=== PATIENT | male | born 1940 | race Hispanic/Latino ===

== ENCOUNTER 2018-03-22 18:29 | Emergency (ER) | payer MEDICARE, OTHER ==
[2018-03-22] MEDS ORDERED: ONDANSETRON HCL MDV 20ML 2 MG/ML VIAL ONE (18:33)
[2018-03-22] MEDS ORDERED: MORPHINE SULFATE 2 MG/ML 1ML SYG ONE (18:33)
[2018-03-22 18:46] LABS: BASOPHILS % (AUTO) 0.3 % (0.0-5.0); EOSINOPHILS % (AUTO) 0.1 % (0.0-8.0); LYMPHOCYTES % (AUTO) 19.8 % (21.0-51.0); MEAN CORPUSCULAR HEMOGLOBIN 30.8 pg (27.0-33.0); MEAN CORPUSCULAR HGB CONC 35.1 g/dL (32.0-36.0); MEAN CORPUSCULAR VOLUME 87.6 fL (79-99); NEUTROPHILS % (AUTO) 70.8 % (40.0-77.0); NUCLEATED RED BLOOD CELLS 0.1 % (0.0-0.19); PLATELET COUNT (AUTO) 115 K/uL (130-400); RED BLOOD CELL COUNT(AUTO) 4.45 MIL/uL (4.50-6.20); RED CELL DISTRIBUTION WIDTH 14.9 % (11.0-15.5); WHITE BLOOD COUNT (AUTO) 6.5 K/uL (4.8-10.8)
[2018-03-22] MEDS ORDERED: TETANUS/DIPHTHERIA TOXOID [ADULT] 0.5 ML VIAL IM ONE (18:49)
[2018-03-22] MEDS ORDERED: CEFAZOLIN SODIUM 1 GM VIAL ONE (18:49)
[2018-03-22] MEDS ORDERED: SODIUM CHLORIDE 0.9% 50 ML IV ONE (18:50)
[2018-03-22 18:55] LABS: CREATININE 1.1 mg/dL (0.5-1.5); POTASSIUM 3.5 mmol/L (3.5-5.1)
[2018-03-22 18:56] LABS: INR 0.98 (0.85-1.15); PARTIAL THROMBOPLASTIN TIME 23.9 SEC (26.3-35.5); PROTHROMBIN TIME 10.3 SEC (9.6-11.6)
[2018-03-22 19:02] LABS: ALBUMIN 4.6 g/dL (3.5-5.0); BILIRUBIN,TOTAL 1.4 mg/dL (0.2-1.0)
[2018-03-22] MEDS ORDERED: ONDANSETRON HCL 4 MG/2 ML VIAL ONE ×2 (19:28→20:42)
[2018-03-22] MEDS ORDERED: ACETAMINOPHEN 325 MG TAB ONE (20:42)
[2018-03-22] MEDS ORDERED: MANNITOL 25% 50ML VIAL ONE ×2 (21:56→22:15)
== END 2018-03-23 00:09 | disposition short-term general hospital (02) ==
LOC: EDH 18:29
DX: S05.61XA Penetrating wound without foreign body of right eyeball, initial encounter (principal); I10 Essential (primary) hypertension; E11.9 Type 2 diabetes mellitus without complications; R79.1 Abnormal coagulation profile; Z86.73 Personal history of transient ischemic attack (TIA), and cerebral infarction without residual deficits; Z98.890 Other specified postprocedural states; W33.01XA Accidental discharge of shotgun, initial encounter; Y93.89 Activity, other specified; Y92.89 Other specified places as the place of occurrence of the external cause; Y99.8 Other external cause status
CPT/HCPCS: 36415; 70481; 70486; 80053; 85025; 85610; 85730; 90471; 90714; 96365; 96374; 96375; 96376 ×2; 99291; J0690; J2150 ×2; J2405 ×2

== ENCOUNTER 2020-10-29 13:38 | Inpatient (IN) | payer MEDICARE, OTHER ==
[~2020-10-29] VITALS: Ht 165.1 cm; Wt 68.0 kg
[2020-10-29 13:57] LABS: APPEARANCE,URINE SL CLOUDY (CLEAR); BILIRUBIN,URINE NEGATIVE (NEGATIVE); COLOR,URINE YELLOW (YELLOW); GLUCOSE, URINE (UA) NEGATIVE (NEGATIVE); KETONES,URINE NEGATIVE (NEGATIVE); LEUKOCYTE ESTERASE ,URINE MODERATE (NEGATIVE); NITRATE,URINE NEGATIVE (NEGATIVE); OCCULT BLOOD,URINE LARGE (NEGATIVE); PH,URINE 5.5 (5.0-8.0); PROTEIN,URINE 30 mg/dL (NEGATIVE); UROBILINOGEN,URINE 0.2 mg/dL (0.2-1.0)
[2020-10-29] MEDS ORDERED: ACETAMINOPHEN 500 MG TABLET ONE ×2 (14:08→23:58)
[2020-10-29] MEDS ORDERED: 0.9%NACL 1000ML 2,000 ML IV ONE (14:08)
[2020-10-29 14:10] LABS: BASOPHILS % (AUTO) 0.2 % (0.0-5.0); EOSINOPHILS % (AUTO) 1.6 % (0.0-8.0); HEMATOCRIT 40.2 % (42-54); LYMPHOCYTES % (AUTO) 8.3 % (21.0-51.0); MEAN CORPUSCULAR HGB CONC 34.6 g/dL (32.0-36.0); MEAN CORPUSCULAR VOLUME 89.5 fL (79-99); MONOCYTES % (AUTO) 9.9 % (3.0-13.0); NEUTROPHILS % (AUTO) 74.4 % (40.0-77.0); PLATELET COUNT (AUTO) 75 K/uL (130-400); RED BLOOD CELL COUNT(AUTO) 4.49 MIL/uL (4.50-6.20); RED CELL DISTRIBUTION WIDTH 13.2 % (11.0-15.5); WHITE BLOOD COUNT (AUTO) 12.5 K/uL (4.8-10.8)
[2020-10-29 14:19] LABS: BACTERIA,URINE Few /HPF (None Seen); SQUAMOUS EPITHELIAL CELL,UR Rare /HPF (0-2); WBC,URINE 26-50 /HPF (0-1)
[2020-10-29 14:28] LABS: CREATININE 1.3 mg/dL (0.5-1.5); POTASSIUM 3.5 mmol/L (3.5-5.1)
[2020-10-29 14:32] LABS: ALBUMIN 4.7 g/dL (3.5-5.0); BILIRUBIN,TOTAL 2.4 mg/dL (0.2-1.0); TOTAL PROTEIN, SERUM 8.7 g/dL (6.0-8.3)
[2020-10-29] MEDS ORDERED: ZOSYN 3.375GM+NS 50ML 50 ML IV ONE ×2 (14:42→23:57)
[2020-10-29] MEDS ORDERED: IOHEXOL-350 75 ML VIAL IV ONE (14:44)
[2020-10-29] MEDS ORDERED: MORPHINE 2 MG SYG IV PRN (18:45)
[2020-10-29] MEDS ORDERED: ONDANSETRON 4MG INJ IV PRN (18:45)
[2020-10-29] MEDS ORDERED: ACETAMINOPHEN 325 MG TAB PO PRN ×2 (18:45)
[2020-10-29] MEDS ORDERED: ACETAMINOPHEN 325 MG TAB ONE (19:46)
[2020-10-29] MEDS ORDERED: FAMOTIDINE 20MG VIAL IV ONE (20:48)
[2020-10-29] MEDS ORDERED: ZOSYN 3.375GM+NS 50ML 50 ML IV SCH (21:00)
[2020-10-30] MEDS ORDERED: ACETAMINOPHEN 325 MG TAB ONE ×2 (04:12→04:58)
[2020-10-30] MEDS ORDERED: 0.9%NACL 1000ML 1,000 ML IV ONE (04:13)
[2020-10-30 04:16] LABS: BASOPHILS % (AUTO) 0.1 % (0.0-5.0); EOSINOPHILS % (AUTO) 1.2 % (0.0-8.0); HEMATOCRIT 39.8 % (42-54); LYMPHOCYTES % (AUTO) 8.5 % (21.0-51.0); MEAN CORPUSCULAR HEMOGLOBIN 30.9 pg (27.0-33.0); MEAN CORPUSCULAR HGB CONC 33.2 g/dL (32.0-36.0); MEAN CORPUSCULAR VOLUME 93.2 fL (79-99); MONOCYTES % (AUTO) 4.8 % (3.0-13.0); NEUTROPHILS % (AUTO) 80.9 % (40.0-77.0); PLATELET COUNT (AUTO) 73 K/uL (130-400); RED BLOOD CELL COUNT(AUTO) 4.27 MIL/uL (4.50-6.20); RED CELL DISTRIBUTION WIDTH 13.5 % (11.0-15.5)
[2020-10-30 04:31] LABS: ALBUMIN 4.1 g/dL (3.5-5.0); BILIRUBIN,TOTAL 2.1 mg/dL (0.2-1.0); CREATININE 1.5 mg/dL (0.5-1.5); POTASSIUM 3.6 mmol/L (3.5-5.1)
[2020-10-30] MEDS ORDERED: ONDANSETRON 4MG INJ ONE (04:31)
[2020-10-30] MEDS: 0.9%NACL 1000ML 1,000 ML IV SCH ×2 (04:45→16:48)
[2020-10-30] MEDS ORDERED: ASPIRIN 325 MG TABLET ONE (04:58)
[2020-10-30] MEDS ORDERED: VANCOMYCIN 1G/250ML KIT 250 ML IV SCH (05:00)
[2020-10-30] MEDS: ASPIRIN 325MG EC TAB PO SCH (05:00)
[2020-10-30] MEDS: MEROPENEM 1 GM VIAL IVP SCH ×3 (05:00→21:32)
[2020-10-30] MEDS ORDERED: VANCOMYCIN PROTOCOL PER PHARMACY IV SCH (05:00)
[2020-10-30] MEDS ORDERED: VANCOMYCIN IV SCH (05:30)
[2020-10-30] MEDS ORDERED: NACL 0.9% IV SCH (05:30)
[2020-10-30] MEDS ORDERED: VANCOMYCIN 1G/250ML KIT 250 ML IV ONE (06:41)
[2020-10-30] MEDS ORDERED: FAMOTIDINE 20MG VIAL IV ONE (08:29)
[2020-10-30] MEDS: FAMOTIDINE 20MG VIAL IV SCH (09:00)
[2020-10-30] MEDS ORDERED: ACETAMINOPHEN 500 MG TABLET ONE (11:21)
[2020-10-30] MEDS ORDERED: MEROPENEM 1 GM VIAL ONE (12:32)
[2020-10-30 16:00] VITALS: BP 111/63
[2020-10-30] MEDS ORDERED: DiphenhydrAMINE HCL 50 MG/ML VIAL IV SCH (17:45)
[2020-10-30] MEDS ORDERED: SOLU-MEDROL 125MG VIAL IVP SCH (17:45)
[2020-10-30] MEDS ORDERED: SOLU-MEDROL 40MG VIAL ONE (17:46)
[2020-10-30] MEDS ORDERED: DiphenhydrAMINE HCL 50 MG/ML VIAL ONE (17:47)
[2020-10-30] MEDS ORDERED: TAMSULOSIN HCL 0.4 MG CAP.ER.24H PO SCH (18:30)
[2020-10-30 19:59] VITALS: BP 107/56
[2020-10-30 23:45] VITALS: BP 110/63
[2020-10-31 03:29] VITALS: BP 110/71
[2020-10-31] MEDS ORDERED: AEC81 PO (04:11)
[2020-10-31] MEDS ORDERED: ATOR40TA71 PO (04:11)
[2020-10-31] MEDS ORDERED: PIOG15TA66 PO (04:11)
[2020-10-31] MEDS ORDERED: LOSA1TAB37 PO (04:11)
[2020-10-31] MEDS: MEROPENEM 1 GM VIAL IVP SCH ×3 (04:51→20:57)
[2020-10-31] MEDS: 0.9%NACL 1000ML 1,000 ML IV SCH (04:52)
[2020-10-31] MEDS: ASPIRIN 325MG EC TAB PO SCH (04:53)
[2020-10-31 05:32] LABS: BASOPHILS % (AUTO) 0.1 % (0.0-5.0); EOSINOPHILS % (AUTO) 0.6 % (0.0-8.0); HEMATOCRIT 32.4 % (42-54); LYMPHOCYTES % (AUTO) 4.1 % (21.0-51.0); MEAN CORPUSCULAR HEMOGLOBIN 29.4 pg (27.0-33.0); MEAN CORPUSCULAR HGB CONC 31.8 g/dL (32.0-36.0); MEAN CORPUSCULAR VOLUME 92.6 fL (79-99); MONOCYTES % (AUTO) 2.9 % (3.0-13.0); NEUTROPHILS % (AUTO) 87.6 % (40.0-77.0); PLATELET COUNT (AUTO) 39 K/uL (130-400); RED CELL DISTRIBUTION WIDTH 13.9 % (11.0-15.5); WHITE BLOOD COUNT (AUTO) 8.4 K/uL (4.8-10.8)
[2020-10-31 06:03] LABS: ALBUMIN 3.1 g/dL (3.5-5.0); BILIRUBIN,TOTAL 1.5 mg/dL (0.2-1.0); CREATININE 1.4 mg/dL (0.5-1.5); POTASSIUM 3.6 mmol/L (3.5-5.1); TOTAL PROTEIN, SERUM 6.8 g/dL (6.0-8.3)
[2020-10-31 06:35] LABS: CRP QUANTITATIVE 307.9 mg/L (0.00-9.0)
[2020-10-31 08:02] VITALS: BP 115/69
[2020-10-31] MEDS: FAMOTIDINE 20MG VIAL IV SCH (09:14)
[2020-10-31] MEDS: VANCOMYCIN 1G/250ML KIT 250 ML IV SCH (09:14)
[2020-10-31 12:12] VITALS: BP 141/84
[2020-10-31 16:47] VITALS: BP 138/69
[2020-10-31 19:30] VITALS: BP 147/62
[2020-11-01] VITALS (7 sets, daily range): BP systolic 116–158; BP diastolic 64–83
[2020-11-01 03:40] LABS: BASOPHILS % (AUTO) 0.1 % (0.0-5.0); EOSINOPHILS % (AUTO) 0.4 % (0.0-8.0); HEMATOCRIT 31.6 % (42-54); LYMPHOCYTES % (AUTO) 4.6 % (21.0-51.0); MEAN CORPUSCULAR HEMOGLOBIN 29.9 pg (27.0-33.0); MEAN CORPUSCULAR HGB CONC 32.9 g/dL (32.0-36.0); MEAN CORPUSCULAR VOLUME 90.8 fL (79-99); MONOCYTES % (AUTO) 6.7 % (3.0-13.0); NEUTROPHILS % (AUTO) 85.9 % (40.0-77.0); NUCLEATED RED BLOOD CELLS 0.2 % (0.0-0.19); PLATELET COUNT (AUTO) 52 K/uL (130-400); RED BLOOD CELL COUNT(AUTO) 3.48 MIL/uL (4.50-6.20); RED CELL DISTRIBUTION WIDTH 13.6 % (11.0-15.5)
[2020-11-01 03:52] LABS: INR 1.07 (0.85-1.15); PROTHROMBIN TIME 11.4 SEC (9.6-11.6)
[2020-11-01 03:53] LABS: PARTIAL THROMBOPLASTIN TIME 27.1 SEC (26.3-35.5)
[2020-11-01 03:59] LABS: ALBUMIN 3.1 g/dL (3.5-5.0); BILIRUBIN,TOTAL 1.1 mg/dL (0.2-1.0); CREATININE 1.4 mg/dL (0.5-1.5); POTASSIUM 4.1 mmol/L (3.5-5.1); TOTAL PROTEIN, SERUM 6.5 g/dL (6.0-8.3)
[2020-11-01] MEDS: MEROPENEM 1 GM VIAL IVP SCH ×3 (06:13→20:29)
[2020-11-01] MEDS: 0.9%NACL 1000ML 1,000 ML IV SCH (06:13)
[2020-11-01] MEDS ORDERED: LOSARTAN/HYDROCHLOROTHIAZIDE 50-12.5MG TABLET PO SCH (09:00)
[2020-11-01] MEDS: VANCOMYCIN 1G/250ML KIT 250 ML IV SCH (09:06)
[2020-11-01] MEDS: PIOGLITAZONE 15MG TAB PO SCH (09:07)
[2020-11-01] MEDS: ASPIRIN 81 MG EC TAB PO SCH (09:07)
[2020-11-01] MEDS: TAMSULOSIN HCL 0.4 MG CAP.ER.24H PO SCH (09:07)
[2020-11-01] MEDS: FAMOTIDINE 20MG VIAL IV SCH (09:07)
[2020-11-01] MEDS: LOSARTAN 50 MG TABLET PO SCH (09:08)
[2020-11-01] MEDS ORDERED: TAMS-1 PO (18:24)
[2020-11-01] MEDS ORDERED: ATORVASTATIN 40 MG TABLET PO SCH (21:00)
[2020-11-02 03:52] VITALS: BP 136/75
[2020-11-02] MEDS: MEROPENEM 1 GM VIAL IVP SCH ×2 (04:48→12:26)
[2020-11-02] MEDS: 0.9%NACL 1000ML 1,000 ML IV SCH (04:48)
[2020-11-02 06:04] LABS: BASOPHILS % (AUTO) 0.1 % (0.0-5.0); EOSINOPHILS % (AUTO) 0.1 % (0.0-8.0); HEMATOCRIT 30.4 % (42-54); LYMPHOCYTES % (AUTO) 8.7 % (21.0-51.0); MEAN CORPUSCULAR HEMOGLOBIN 30.3 pg (27.0-33.0); MEAN CORPUSCULAR HGB CONC 32.9 g/dL (32.0-36.0); MEAN CORPUSCULAR VOLUME 92.1 fL (79-99); MONOCYTES % (AUTO) 7.8 % (3.0-13.0); NEUTROPHILS % (AUTO) 77.8 % (40.0-77.0); PLATELET COUNT (AUTO) 70 K/uL (130-400); RED CELL DISTRIBUTION WIDTH 13.5 % (11.0-15.5); WHITE BLOOD COUNT (AUTO) 7.3 K/uL (4.8-10.8)
[2020-11-02 06:38] LABS: BILIRUBIN,TOTAL 1.1 mg/dL (0.2-1.0); CREATININE 1.2 mg/dL (0.5-1.5); POTASSIUM 3.9 mmol/L (3.5-5.1); TOTAL PROTEIN, SERUM 6.2 g/dL (6.0-8.3)
[2020-11-02 08:04] VITALS: BP 130/71
[2020-11-02] MEDS: VANCOMYCIN 1G/250ML KIT 250 ML IV SCH (09:00)
[2020-11-02 11:00] VITALS: BP 155/86
[2020-11-02] MEDS: PIOGLITAZONE 15MG TAB PO SCH (12:26)
[2020-11-02] MEDS: LOSARTAN 50 MG TABLET PO SCH (12:26)
[2020-11-02] MEDS: TAMSULOSIN HCL 0.4 MG CAP.ER.24H PO SCH (12:26)
[2020-11-02] MEDS: ASPIRIN 81 MG EC TAB PO SCH (12:26)
[2020-11-02] MEDS: FAMOTIDINE 20MG VIAL IV SCH (12:27)
[2020-11-02 16:00] VITALS: BP 133/70
== END 2020-11-02 19:00 | disposition home or self-care (01) | DRG 872 ==
LOC: EDH 13:38 → EDHIP 18:35 → 3AH 10-30 15:57
PROVIDERS: ADMIT Family Medicine; ATTEND Family Medicine
DX: A41.50 Gram-negative sepsis, unspecified (principal); N10 Acute pyelonephritis; N17.9 Acute kidney failure, unspecified; I10 Essential (primary) hypertension; E86.1 Hypovolemia; D69.6 Thrombocytopenia, unspecified; E11.51 Type 2 diabetes mellitus with diabetic peripheral angiopathy without gangrene; N41.9 Inflammatory disease of prostate, unspecified; E27.9 Disorder of adrenal gland, unspecified; Z20.822 Contact with and (suspected) exposure to COVID-19; I25.10 Atherosclerotic heart disease of native coronary artery without angina pectoris; R53.81 Other malaise; R31.0 Gross hematuria; Z86.73 Personal history of transient ischemic attack (TIA), and cerebral infarction without residual deficits; Z83.3 Family history of diabetes mellitus; Z79.84 Long term (current) use of oral hypoglycemic drugs; Z79.899 Other long term (current) drug therapy
CPT/HCPCS: 36415; 74177; 80053; 80202; 81001; 82533; 82948; 83036; 83605; 84145; 85025; 85610; 85730; 86140; 87040; 87077; 87088; 87186; 87426; 99291; G0378; J1200; J2185; J2405; J2543; J2920; J3370; J3490; J7030; J7040; Q9967; U0003

== ENCOUNTER 2021-01-07 16:00 | Emergency (ER) | payer MEDICARE ==
[~2021-01-07 16:00] MED LIST: AEC81 PO; ATOR40TA71 PO; LOSA1TAB37 PO; PIOG15TA66 PO; TAMS-1 PO
[2021-01-07] MEDS ORDERED: FLUORESCEIN SODIUM 1 STRIP STRIP ONE (16:53)
[2021-01-07] MEDS ORDERED: TETRACAINE HCL 0.5% 4 ML OPHTH SOLN ONE (16:53)
== END 2021-01-07 18:10 | disposition home or self-care (01) ==
LOC: EDH 16:00
DX: H11.32 Conjunctival hemorrhage, left eye (principal); I12.0 Hypertensive chronic kidney disease with stage 5 chronic kidney disease or end stage renal disease; E11.22 Type 2 diabetes mellitus with diabetic chronic kidney disease; N18.6 End stage renal disease; E78.00 Pure hypercholesterolemia, unspecified; Z87.891 Personal history of nicotine dependence

== ENCOUNTER 2024-09-04 12:17 | Emergency (ER) | payer MEDICARE ==
[~2024-09-04] VITALS: Ht 165.1 cm; Wt 61.2 kg
[2024-09-04 12:18] VITALS: BP 157/78; PULSE 65; RESP 14; TEMP 98.4
[2024-09-04] MEDS ORDERED: CARB-288 OTIC (12:38)
--- NOTE | 2024-09-04 12:38 | ERN ---
General Chief Complaint: Foreignbody Ear Stated Complaint: FOREIGN BODY LEFT EAR Time Seen by MD: 12:27 Time Seen by Midlevel: 12:27 History of Present Illness Allergies: Coded Allergies: No Known Drug Allergies (Verified Allergy, Unknown, 10/29/20) Home Meds Active Scripts Tamsulosin HCl (Flomax) 0.4 Mg Cap.er.24h, 0.4 MG PO DAILY for 30 Days, #30 CAPSULE. Prov:JOSE DAVID MORENO I HAND TIRE [employer] 11/01/20 Reported Medications Aspirin (ASPIRIN 81 MG ECTAB) 81 Mg Ectab, 81 MG PO DAILY, TAB.EC 10/31/20 Atorvastatin Calcium (Atorvastatin Calcium) 40 Mg Tablet, 40 MG PO HS, TAB 10/31/20 Pioglitazone HCl (Pioglitazone HCl) 15 Mg Tablet, 15 MG PO AM, TAB 10/31/20 Losartan/Hydrochlorothiazide (Losartan-Hctz 50-12.5 mg Tab) 1 Each Tablet, 1 EACH PO AM, TAB 10/31/20 Past Medical History Past Medical History: High Cholesterol, Hypertension Past Surgical History: Other ED Course Vital Signs Date Time Temp Pulse Resp B/P (MAP) Pulse Ox O2 Delivery O2 Flow Rate FiO2 09/04/24 12:18 98.4 65 14 157/78 100 Room Air 0 DX & DISP Disposition: Discharge Departure Impression: Primary Impression: Foreign body in left ear Condition: Stable Scripts Carbamide Peroxide (Ear Wax Removal) 6.5 % Drops 5 DROP OTIC DAILY for 7 Days, #15 ML 0 Refills Prov: AZUCENA BONNER 09/04/24 Referrals: ILYA GORDON MD (PCP) Time of Disposition: 12:37 I have reviewed the case, and I agree with, Diagnosis and Plan AZUCENA BONNER Sep 04, 2024 12:38
== END 2024-09-04 12:46 | disposition home or self-care (01) ==
LOC: EDH 12:17
DX: T16.2XXA Foreign body in left ear, initial encounter (principal); E78.00 Pure hypercholesterolemia, unspecified; I10 Essential (primary) hypertension; Z79.82 Long term (current) use of aspirin; W44.8XXA Other foreign body entering into or through a natural orifice, initial encounter; Y93.89 Activity, other specified; Y92.89 Other specified places as the place of occurrence of the external cause; Y99.8 Other external cause status
CPT/HCPCS: 99282